=== PATIENT | male | born 1955 | race Caucasian/White ===

== ENCOUNTER 2020-06-29 09:52 | Day surgery (SDC) | payer OTHER ==
[2020-06-28 10:36] VITALS: BMI 32.8
[~2020-06-29 09:52] MED LIST: CYCLOPENTOLATE 1% OPHTH SOLN 2 ML BTL OP ONE; LACTATED RINGERS 1,000 ML IV SCH; MOXIFLOXACIN HCL 0.5% DROPS 3 ML BTL OP ONE; PHENYLEPHRINE 2.5% OPHTH DRP 2ML OP NR; TETRACAINE 0.5% OPHTH (PF) DROPS 4 ML BTL OP ONE; TIMOLOL 0.5% OPHTH DROPS 5 ML BTL OP ONE
[2020-06-29 10:34] VITALS: RESP 16; TEMP 97
[2020-06-29] MEDS ORDERED: EPINEPHrine (PF) 0.3 ML in BALANCED SALT IRRIG SOLN COMB2 500 ML IRRIGATION ONE (11:01)
[2020-06-29] MEDS ORDERED: MIDAZOLAM 2 MG/2 ML VIAL ONE (11:02)
[2020-06-29] MEDS ORDERED: fentaNYL (PF) 50 MCG/ML 2 ML AMP ONE (11:02)
[2020-06-29] MEDS ORDERED: HYALURONATE SODIUM INTRAOCULAR 1 EACH SYRINGE (12MG/ML) INTRAOCULA ONE (11:03)
[2020-06-29] MEDS ORDERED: LIDOCAINE 1% (PF) 10MG/ML VIAL SQ ONE (11:03)
[2020-06-29] MEDS ORDERED: MOXIFLOXACIN HCL 0.5% DROPS 3 ML BTL RIGHT EYE ONE (11:03)
[2020-06-29] MEDS ORDERED: BALANCED SALT IRRIG SOLN COMB2 15 ML IRRIG.SOLN IRRIGATION ONE (11:03)
[2020-06-29] MEDS ORDERED: ATROPINE OPHTH SOLN 1% 5ML BTL RIGHT EYE ONE (11:03)
--- NOTE | 2020-06-29 11:44 | P.OP ---
Date of Procedure: 06/29/20 Preoperative Diagnosis: NS & ASTIG Postoperative Diagnosis: same Procedure(s) Performed: PIOL, OD Implants: BL1UT 16.00 x 200 Anesthesia: MAC Surgeon: Seth Oropeza Pathology: none sent Condition: stable Disposition: same day Indications for Procedure: blurry vision Operative Findings: no complications
[2020-06-29 12:19] VITALS: BP 116/62; PULSE 53
--- NOTE | 2020-06-30 01:15 | OP ---
OPERATIVE REPORT DATE OF SURGERY: 06/29/2020 PROCEDURE: Phacoemulsification of cataract and intraocular lens implant of the right eye. PREOPERATIVE DIAGNOSIS: Nuclear sclerosis. POSTOPERATIVE DIAGNOSIS: Nuclear sclerosis. SURGEON: Dr. Seth Oropeza. ANESTHESIA: Topical. ESTIMATED BLOOD LOSS: None. SPECIMEN TAKEN: None. NARRATIVE: After obtaining the appropriate consent, the patient was brought to the operating room where he was asked to sit upright and the axes of 0 and 180 degrees were identified and marked with a gentian arslan marker. He was then placed in the proper supine position under cardiac monitoring, then prepped and draped in the usual sterile manner. He was approached from his right temporal side and a 5.5 mm Donell ring was placed centrally over the Purkinje reflex and placed against the patient's cornea. This was followed by an incision at the 11 o'clock position with an MVR blade. Through this opening, 1% Xylocaine MPF 50:50 mix with balanced salt solution was injected into the anterior chamber. This was followed by stabilization of the anterior chamber with Amvisc. A Oas[employer] Mobile corneal axis marker set to an axis of 18 degrees and marked with gentian arslan was placed on the patient's cornea using previously acquired corneal topography information. At the 9 o'clock position a 2.75 mm cholo keratome was used to create a self-sealing corneal flap incision in a Langerman's fashion. Through this opening a cystotome was introduced to begin a continuous tear capsulorrhexis which was completed using the Utrata forceps. Care was taken to ensure that the size of the anterior capsulorrhexis was at least the size of the 5.5 mm Donell kelton on the anterior cornea. Hydrodissection and hydrodelineation were accomplished with balanced salt solution. Phacoemulsification of lens utilizing phaco chop was accomplished in 18.6 seconds at 21% power. Additional Xylocaine MPF was instilled into the anterior chamber. This was followed by removal of the remaining cortex under irrigation and aspiration along with careful polishing of the posterior capsule in capsule vacuum mode. Additional Amvisc was then placed in the eye and using both [place] and Pepose capsule polishers, the remaining cortex was identified and removed especially from the equator and under the anterior capsular leaflet. A small amount of additional Amvisc was placed in the eye and the temporal incision was enlarged slightly to accommodate the lens gauger. A [employer] Trulign BL1UT 16.0 diopter by 2.0 diopter posterior chamber intraocular lens was then inserted into the capsular bag without difficulty. The lens was rotated 270 degrees back and forth to ensure no additional traction was encounter due to remaining cortical fiber materials. Once the lens was confirmed in its proper position in alignment with the 18 degree axis previously placed on the outside of the cornea the remaining viscoelastic was removed from in and around the intraocular lens as well as the anterior chamber. Confirmation of the orientation of lens was accomplished and balanced salt solution was used to deepen the anterior chamber. The paracentesis as well as the temporal incision were blotted dry with a Weck-Lulú sponge and ReSure was used to maintain water tight integrity. Two drops of moxifloxacin as well as 0.5% timolol and 1% atropine were placed on the patient's eye prior to patch and shielding in routine fashion. The patient was then transported to recovery where he was released to home in good condition. There were no complications from this procedure. MMJAVID / PEGGYN: [id number] /
== END 2020-06-29 12:29 | disposition home or self-care (01) ==
LOC: OR 09:52
PROVIDERS: ATTEND Ophthalmology
DX: H25.13 Age-related nuclear cataract, bilateral (principal); H35.369 Drusen (degenerative) of macula, unspecified eye; H52.13 Myopia, bilateral; H52.4 Presbyopia; H52.223 Regular astigmatism, bilateral; H33.21 Serous retinal detachment, right eye; I10 Essential (primary) hypertension; I25.10 Atherosclerotic heart disease of native coronary artery without angina pectoris; E78.5 Hyperlipidemia, unspecified; K21.9 Gastro-esophageal reflux disease without esophagitis; F17.210 Nicotine dependence, cigarettes, uncomplicated; J30.2 Other seasonal allergic rhinitis; Z90.89 Acquired absence of other organs; Z98.890 Other specified postprocedural states; Z79.82 Long term (current) use of aspirin; Z79.02 Long term (current) use of antithrombotics/antiplatelets; Z79.899 Other long term (current) drug therapy; Z95.5 Presence of coronary angioplasty implant and graft; Z83.3 Family history of diabetes mellitus; Z83.518 Family history of other specified eye disorder; Z82.49 Family history of ischemic heart disease and other diseases of the circulatory system; Z97.3 Presence of spectacles and contact lenses
CPT/HCPCS: 66984; V2632; V2788; J2250; J0171; J3010; J2001

== ENCOUNTER 2021-07-19 09:56 | Day surgery (SDC) | payer OTHER ==
[2021-06-09 08:33] VITALS: BMI 32.8
[~2021-07-19 09:56] MED LIST changes: -CYCLOPENTOLATE 1% OPHTH SOLN 2 ML BTL OP ONE; +LIDOCAINE 1% (10MG/ML) FOR IV START INTRADERMA PRN; -MOXIFLOXACIN HCL 0.5% DROPS 3 ML BTL OP ONE; -PHENYLEPHRINE 2.5% OPHTH DRP 2ML OP NR; -TETRACAINE 0.5% OPHTH (PF) DROPS 4 ML BTL OP ONE; -TIMOLOL 0.5% OPHTH DROPS 5 ML BTL OP ONE
[2021-07-19 10:27] VITALS: TEMP 97.6
[2021-07-19] MEDS ORDERED: LIDOCAINE 1% INJ 10MG/ML (20 ML MDV) ONE (10:44)
[2021-07-19] MEDS ORDERED: PROPOFOL 10 MG/ML 20 ML VIAL IV ONE (10:44)
[2021-07-19 11:10] VITALS: RESP 16
--- NOTE | 2021-07-19 11:11 | P.PCN ---
Date of Procedure: 07/19/21 Procedure(s) Performed: BRIEF HISTORY: Patient is a 66-year-old pleasant white male scheduled for an elective colonoscopy as a part of screening for colorectal neoplasia PROCEDURE PERFORMED: Colonoscopy. PREOPERATIVE DIAGNOSIS: Screening for colon cancer. IV sedation per Anesthesia. PROCEDURE: After informed consent was obtained, the patient, was brought into the endoscopy unit. IV sedation was administered by Anesthesia under continuous monitoring. Digital rectal examination was normal. Initially the Olympus CF-160 flexible video colonoscope was then inserted in the rectum, gradually advanced into the cecum without any difficulty. Careful examination was performed as the scope was gradually being withdrawn. Ileocecal valve and the appendiceal orifice were visualized and appeared normal. Prep was excellent. Mucosa of the cecum, ascending colon, transverse colon, descending colon, sigmoid colon, and rectum appeared normal. Retroflexion was performed in the rectum and no lesions were seen. The patient tolerated the procedure well. IMPRESSION: Normal-appearing colon from rectum to cecum with no evidence of colorectal neoplasia. RECOMMENDATIONS: Findings of this examination were discussed with the patient as well as his family. He was advised to have a repeat screening colonoscopy in 10 years.
[2021-07-19 11:22] VITALS: PULSE 59
[2021-07-19 11:24] VITALS: BP 98/52
== END 2021-07-19 11:59 | disposition home or self-care (01) ==
LOC: ORWHC2ENDO 09:56
PROVIDERS: ATTEND Internal Medicine Gastroenterology
DX: Z12.11 Encounter for screening for malignant neoplasm of colon (principal); I25.10 Atherosclerotic heart disease of native coronary artery without angina pectoris; I25.2 Old myocardial infarction; G47.33 Obstructive sleep apnea (adult) (pediatric); F17.200 Nicotine dependence, unspecified, uncomplicated; Z95.818 Presence of other cardiac implants and grafts; Z79.82 Long term (current) use of aspirin
CPT/HCPCS: 45378; J2001; J2704